=== PATIENT | male | born 1995 | race Caucasian/White ===

== ENCOUNTER 2018-12-03 13:17 | Emergency (ER) | payer MEDICAID ==
[~2018-12-03] VITALS: Ht 180.3 cm; Wt 70.0 kg
[2018-12-03 15:09] VITALS: BP 122/84
== END 2018-12-03 16:25 | disposition home or self-care (01) ==
LOC: EMS 13:18
DX: I86.1 Scrotal varices (principal); F17.210 Nicotine dependence, cigarettes, uncomplicated
CPT/HCPCS: 76870; 99406